=== PATIENT | female | born 1990 | race Caucasian/White ===

== ENCOUNTER → 2017-03-21 | Emergency (ER) | payer BC ==
[~2017-03-21] VITALS: Ht 172.7 cm; Wt 91.6 kg
[~2017-03-21] MED LIST: METH4TAB PO; PREN-53 PO
[2017-03-21 18:02] LABS: BILIRUBIN,URINE NEGATIVE (NEGATIVE); KETONES,URINE 2+ (NEGATIVE); LEUKOCYTE ESTERASE ,URINE NEGATIVE (NEGATIVE); NITRITE,URINE NEGATIVE (NEGATIVE); PH,URINE 6 (5-9); PROTEIN,URINE NEGATIVE (NEGATIVE); UROBILINOGEN,URINE NORMAL (NORMAL)
--- NOTE | 2017-03-21 18:04 | ED GU-Female ---
General Chief Complaint: -Female Stated Complaint: FELL/19 WEEKS OB Nursing Triage Note: PT AMBULATED TO ED. PT STATES SHE WAS GOING OUTSIDE HER HOUSE AND IT WAS RAINING AND SHE FELL DOWN HER 2 FR[address]AIRS. PT STATES SHE "FELL ONTO HER BACK BUT FEELS LIKE SHE ALSO FELL FORWARD". PT DID NOT HIT HEAD. Nursing Sepsis Screen: No Definite Risk Source: patient, spouse Exam Limitations: no limitations History of Present Illness Time seen by provider: 18:10 Initial Comments 25-year-old female patient presents to the emergency department complaints of falling down 2 stairs after slipping on the wet cemented. Landed on her buttocks, but her belly hit her thighs. Denies hitting her head, loss of consciousness, neck pain, back pain, vaginal discharge, vaginal bleeding. Patient is 19 weeks . Timing/Duration: just prior to arrival Activities at Onset: other (walking down the stairs) Prior Genitourinary Problems: recent trauma (see HPI) Allergies and Home Medications Allergies Coded Allergies: No Known Drug Allergies (Unverified , 01/23/16) Home Medications [id number]/Iron Fumarate/FA/Dss 1 Each Tablet, 1 EACH PO, (Reported) Constitutional: No dizziness, No weakness EENTM: no symptoms reported Respiratory: No cough, No short of breath Cardiovascular: No chest pain, No palpitations, No syncope Gastrointestinal: No abdominal pain, No diarrhea, No nausea, No vomiting Genitourinary: denies discharge, denies dysuria, denies frequency, denies flank pain, denies hematuria, denies incontinence, denies pain : Yes Expected Date of Delivery: Aug 13, 2017 Musculoskeletal: No back pain, No joint pain, No neck pain Skin: no symptoms reported Psychiatric/Neurological: No Symptoms Reported All Other Systemes Reviewed Negative Unless Noted: Yes (Negative excepted noted.) Past Xxpdzwd-Xqittz-Jsheil Hx Patient Social History Recent Foreign Travel: No Contact w/Someone Who Travel: No Recent Infectious Disease Expo: No Surgeries HX Surgeries: Yes (DENTAL) Respiratory Hx Respiratory Disorders: No Cardiovascular Hx Cardiac Disorders: No Neurological Hx Neurological Disorders: No Reproductive System : Yes Hx : 1 Hx Para: 0 Hx Total # of Abortions (Spona: 0 Hx Reproductive Disorders: No Female Reproductive Disorders: Denies Genitourinary Hx Genitourinary Disorders: No Gastrointestinal Hx Gastrointestinal Disorders: No Musculoskeletal Hx Musculoskeletal Disorders: No Endocrine Hx Endocrine Disorders: No HEENT HX ENT Disorders: No Cancer Hx Cancer: No Psychosocial Hx Psychiatric Problems: No Integumentary HX Skin/Integumentary Disorder: No Blood Transfusions Hx Blood Disorders: No Adverse Reaction to a Blood Tr: No Reviewed Nursing Assessment Reviewed/Agree w Nursing PMH: Yes Family Medical History Significant Family History: No Pertinent Family Hx Physical Exam Vital Signs Vital Sign - Last 12Hours Capillary Refill : Less Than 3 Seconds General Appearance: WD/WN, no apparent distress HEENT: PERRL/EOMI, pharynx normal Neck: non-tender, full range of motion, supple, normal inspection Cardiovascular: normal peripheral pulses, regular rate, rhythm, no edema, no murmur Respiratory: lungs clear, normal breath sounds, no respiratory distress Gastrointestinal: normal bowel sounds, non tender, soft, other (uteromegaly) Back: normal inspection, no vertebral tenderness Extremities: normal inspection, no pedal edema, normal capillary refill, pelvis stable Neurologic/Psychiatric: drier helper II-XII nml as tested, no motor/sensory deficits, alert, normal mood/affect, oriented x 3 Skin: normal color, warm/dry Progress/Results/Core Measures Results/Orders Lab Results Laboratory Tests Test 03/21/17 17:49 Range/Units Urine Color YELLOW Urine Clarity SLIGHTLY CLOUDY Urine pH 6 5-9 Urine Specific [place] 1.010 L 1.016-1.022 Urine Protein NEGATIVE NEGATIVE Urine Glucose (UA) NEGATIVE NEGATIVE Urine Ketones 2+ H NEGATIVE Urine Nitrite NEGATIVE NEGATIVE Urine Bilirubin NEGATIVE NEGATIVE Urine Urobilinogen NORMAL NORMAL MG/DL Urine Leukocyte Esterase NEGATIVE NEGATIVE Urine RBC (Auto) NEGATIVE NEGATIVE Urine RBC NONE /HPF Urine WBC 0-2 /HPF Urine Squamous Epithelial Cells 5-10 /HPF Urine Crystals NONE /LPF Urine Bacteria FEW H /HPF Urine Casts NONE /LPF Urine Mucus NEGATIVE /LPF Urine Culture Indicated NO My Orders Orders - BERNA PRINGLE Ua Culture If Indicated (03/21/17 17:53) [facility] [id number] (03/21/17 17:47) Vital Signs/I&O Vital Sign - Last 12Hours 03/21/17 03/21/17 17:42 17:42 Temp 97.8 97.8 Pulse 88 88 Resp 20 20 B/P (MAP) 141/88 (105) 141/88 Pulse Ox 98 98 O2 Delivery Room Air Room Air Blood Pressure Mean: 105 Diagnostic Imaging Diagonstic Imaging: Ultrasound Plain Films/CT/US/NM/MRI: pelvis Comments FINDINGS: The cervical length is estimated at 4.8 cm. The placenta appears posterior. The cervical os is not well demonstrated. It is difficult to definitively state the distance between the placenta and the cervical os. There is no identified retroplacental fluid collection. There is a single living intrauterine . heart rate is identified at 158 beats per minute. measurements were not made. There is no demonstrated free pelvic fluid. IMPRESSION: 1. No ultrasound evidence of placental abruption. 2. No demonstrated free pelvic fluid. 3. Single living intrauterine . Dictated on workstation # [id number] Reviewed: Reviewed by Me (radiology report reviewed by me) Departure Communication Progress Notes Laboratory and diagnostic findings discussed with the patient. Plan for discharge to home. All return precautions were discussed with the patient as described in the discharge instructions of this report. Patient voices understanding and agrees with the treatment plan. Impression Impression: Primary Impression: with 19 completed weeks gestation Additional Impressions: Fall from slipping on slippery surface Qualified Codes: W01.0XXA - Fall on same level from slipping, tripping and stumbling without subsequent striking against object, initial encounter Volume depletion Disposition: 01 HOME, SELF-CARE Condition: Improved Departure-Patient Inst. Decision time for Depature: 18:26 Referrals: KEERTHI FRANCISCO DO (PCP) Primary Care Physician Patient Instructions: Abdominal Trauma in (DC), Dehydration, Adult ( DC) Add. Discharge Instructions: All discharge instructions reviewed with patient and/or family. Voiced understanding. Tylenol [id number] as directed for pain. Drink plenty of fluids. Rest. No strenuous activity or intercourse until released by your stripping cutter and winder. Follow-up with your stripping cutter and winder this week for recheck. Call for appointment time. Return to the emergency department for abdominal pain, vaginal discharge, vaginal bleeding, or any other concerns. BERNA PRINGLE March 21, 2017 18:04
[2017-03-21 18:12] LABS: WBC,URINE 0-2 /HPF
--- NOTE | 2017-03-21 18:27 | Diagnostic Imaging Report ---
EXAM: Ultrasound OB limited. DATE: March 21, 2017. INDICATION: A 26-year-old female, fall. . COMPARISON: None. FINDINGS: The cervical length is estimated at 4.8 cm. The placenta appears posterior. The cervical os is not well demonstrated. It is difficult to definitively state the distance between the placenta and the cervical os. There is no identified retroplacental fluid collection. There is a single living intrauterine . heart rate is identified at 158 beats per minute. measurements were not made. There is no demonstrated free pelvic fluid. IMPRESSION: 1. No ultrasound evidence of placental abruption. 2. No demonstrated free pelvic fluid. 3. Single living intrauterine . Dictated by: Dictated on workstation # [id number]
[2017-03-21 18:56] VITALS: BP 141/88
== END | disposition home or self-care (01) ==
LOC: EDUNIT# 17:35 → ER 17:38
DX: S39.92XA Unspecified injury of lower back, initial encounter (principal); O99.282 Endocrine, nutritional and metabolic diseases complicating pregnancy, second trimester; E86.9 Volume depletion, unspecified; Z3A.19 19 weeks gestation of pregnancy; W01.0XXA Fall on same level from slipping, tripping and stumbling without subsequent striking against object, initial encounter; Y92.009 Unspecified place in unspecified non-institutional (private) residence as the place of occurrence of the external cause; Y99.8 Other external cause status
CPT/HCPCS: 76815; 81000; 99283

== ENCOUNTER → 2017-04-04 | Outpatient (CLI) | payer BC ==
--- NOTE | 2017-04-04 15:33 | Diagnostic Imaging Report ---
INDICATION: survey. TECHNIQUE: Multiple real-time grayscale images were obtained over the gravid uterus. COMPARISON: 03/21/2017. FINDINGS: The heart rate is 146 beats minute. The placenta is posterior. No placenta previa. The cervix is 4.8 cm in length and is closed. The lateral ventricles, the stomach, the spine, the bladder, two umbilical arteries are demonstrated. No hydronephrosis or cystic mass at the level of the kidneys. The four-chamber view is not well seen due to position. Also the cord insertion is not well evaluated. Current gestational age based on provided SYDNIE of 08/13/2017, would be 21 weeks and 2 days. Biometrical measurements are as follows: Biparietal 5.2 cm, age 21 weeks 6 days. Head circumference 19.2 cm, age 21 weeks 4 days. Abdominal circumference 16.2 cm, age 21 weeks 3 days. Femur length 3.7 cm, age 21 weeks 5 days. Sonographic estimate age: 21 weeks 5 days. Sonographic estimated date of delivery: 08/10/17. Estimated Weight: 429 gm (+/- 63 gm). LMP percentile: 56%. heart rate: 146 beats per minute. number: 1 of 1. IMPRESSION: Reevaluation for cord insertion and four-chamber view within two weeks is recommended. Dictated by: Dictated on workstation # [id number]
== END ==
LOC: RAD 11:42
PROVIDERS: ATTEND Obstetrics & Gynecology
DX: Z34.92 Encounter for supervision of normal pregnancy, unspecified, second trimester (principal)
CPT/HCPCS: 76805

== ENCOUNTER → 2017-06-01 | Outpatient (CLI) | payer BC ==
--- NOTE | 2017-06-01 11:55 | Diagnostic Imaging Report ---
INDICATION: Followup cord insertion and four-chamber view. TECHNIQUE: Multiple real-time grayscale images were obtained over the gravid uterus. COMPARISON: 04/04/17 FINDINGS: The placenta is posterior. No placenta previa. The JOCELYN is 14 cm. The cord insertion appear unremarkable. The four-chamber view is still not well seen due to position. The heart rate is 121 beats per minutes. IMPRESSION: The cord insertion appear unremarkable. The four-chamber view is still not well seen due to position. Dictated by: Dictated on workstation # [id number]
== END ==
LOC: RAD 09:53
PROVIDERS: ATTEND Obstetrics & Gynecology
DX: Z36 Encounter for antenatal screening of mother (principal); Z3A.00 Weeks of gestation of pregnancy not specified
CPT/HCPCS: 76816

== ENCOUNTER 2017-08-10 20:42 | Outpatient (CLI) | payer BC ==
[~2017-08-10] VITALS: Ht 172.7 cm; Wt 103.9 kg
[2017-08-10 20:57] VITALS: BP 136/82
[2017-08-10 21:05] LABS: BILIRUBIN,URINE NEGATIVE (NEGATIVE); KETONES,URINE NEGATIVE (NEGATIVE); LEUKOCYTE ESTERASE ,URINE 3+ (NEGATIVE); NITRITE,URINE NEGATIVE (NEGATIVE); PH,URINE 7 (5-9); PROTEIN,URINE NEGATIVE (NEGATIVE); UROBILINOGEN,URINE NORMAL (NORMAL)
[2017-08-10] MEDS ORDERED: CEPH-507 PO (21:52)
--- NOTE | 2017-08-13 12:18 | Physician Query-Final Dx ---
BINA ODEN 08/13/17 1218: Clinic Account Progress/Dx Physician Query: Please give diagnosis Date of Service Aug 10, 2017 at 20:42 ANAMARIA OLIVA DO 08/14/17 1018: Clinic Account Progress/Dx DIAGNOSIS: Diagnosis 37 week IUP Uterine contractions UTI BINA ODEN Aug 13, 2017 12:18 ANAMARIA OLIVA DO Aug 14, 2017 10:18
== END 2017-08-10 21:58 | disposition home or self-care (01) ==
LOC: LDRP 20:42 → WSo 20:42
PROVIDERS: ATTEND Obstetrics & Gynecology
DX: O23.93 Unspecified genitourinary tract infection in pregnancy, third trimester (principal); Z3A.37 37 weeks gestation of pregnancy
CPT/HCPCS: 81000; 87088; 99214

== ENCOUNTER 2017-08-13 20:09 | Inpatient (IN) | payer BC ==
[~2017-08-13] VITALS: Ht 172.7 cm; Wt 104.3 kg
[~2017-08-13 20:09] MED LIST changes: +CEPH-507 PO
[2017-08-13 20:12] VITALS: BP 153/76
[2017-08-13 20:17] VITALS: BP 143/71
[2017-08-13] MEDS ORDERED: CATHETER FLUSH 10 ML SYR IV PRN (21:00)
[2017-08-13] MEDS ORDERED: MINERAL OIL CONCENTRATE 99.9% 15 ML UDC TOP PRN (21:00)
[2017-08-13] MEDS ORDERED: NS IV 1000 ML 1,000 ML IV ONE (21:00)
[2017-08-13] MEDS ORDERED: MISOPROSTOL 100 MCG (CYTOTEC) TAB PO ONE (21:00)
[2017-08-13] MEDS: D5 LR IV SOLUTION 1,000 ML IV SCH (21:20)
[2017-08-13 21:40] LABS: BASOPHILS # (AUTO) 0.1 10^3/uL (0.0-0.1); BASOPHILS % (AUTO) 0 % (0-10); EOSINOPHILS # (AUTO) 0.2 10^3/uL (0.0-0.3); EOSINOPHILS % (AUTO) 1 % (0-10); LYMPHOCYTES # (AUTO) 2.8 X 10^3 (1.0-4.0); LYMPHOCYTES % (AUTO) 17 % (12-44); MEAN CORPUSCULAR HEMOGLOBIN 29 PG (25-34); MEAN CORPUSCULAR HGB CONC 34 G/DL (32-36); MEAN CORPUSCULAR VOLUME 86 FL (80-99); MEAN PLATELET VOLUME 9.2 FL (7.4-10.4); MONOCYTES # (AUTO) 1.4 X 10^3 (0.0-1.0); MONOCYTES % (AUTO) 9 % (0-12); NEUTROPHILS # (AUTO) 11.7 X 10^3 (1.8-7.8); NEUTROPHILS % (AUTO) 73 % (42-75); PLATELET COUNT 269 10^3/uL (130-400); RED BLOOD COUNT 3.82 10^6/uL (4.35-5.85); RED CELL DISTRIBUTION WIDTH 14.3 % (10.0-14.5); WHITE BLOOD COUNT 16.1 10^3/uL (4.3-11.0)
[2017-08-13 21:52] LABS: BILIRUBIN,URINE NEGATIVE (NEGATIVE); KETONES,URINE NEGATIVE (NEGATIVE); LEUKOCYTE ESTERASE ,URINE 2+ (NEGATIVE); NITRITE,URINE NEGATIVE (NEGATIVE); PH,URINE 6.5 (5-9); PROTEIN,URINE NEGATIVE (NEGATIVE); SQUAMOUS EPITHELIAL CELL,UR >50 /HPF; UROBILINOGEN,URINE NORMAL (NORMAL)
[2017-08-13 22:03] LABS: BAND NEUTROPHILS 9 %; BASOPHILS % (MANUAL) 0 %; EOSINOPHILS % (MANUAL) 2 %; LYMPHOCYTES % (MANUAL) 20 %; METAMYELOCYTES % 2 %; NEUTROPHILS % (MANUAL) 62 %
[2017-08-13 22:45] VITALS: BP 131/81
[2017-08-13 23:33] VITALS: BP 137/73
[2017-08-14] VITALS (65 sets, daily range): BP systolic 103–137; BP diastolic 56–84
[2017-08-14] MEDS: MISOPROSTOL 100 MCG (CYTOTEC) TAB PO SCH ×4 (01:27→13:30)
[2017-08-14] MEDS: D5 LR IV SOLUTION 1,000 ML IV SCH ×3 (04:18→20:20)
[2017-08-14] MEDS ORDERED: INFLUENZA TRIvalent 2017-2018 0.5 ML/45 MCG SYR IM ONE (07:15)
[2017-08-14] MEDS ORDERED: OXYTOCIN/NORMAL SALINE 500 ML IV SCH (11:55)
--- NOTE | 2017-08-14 11:56 | Progress Note-Standard ---
Standard Progress Note Progress Notes/Assess & Plan Date Seen by Provider: Aug 14, 2017 Time Seen by Provider: 11:30 Progress/Assessment & Plan Has received 4 doses of cytotec SVE 1+ 50/ -2 AROM clear [place] q 2-6 FWB reassuring Will monitor for change and augment as needed. Epidural prn Laboratory Tests Test 08/13/17 20:30 08/13/17 21:00 Range/Units Urine Color YELLOW Urine Clarity SLIGHTLY CLOUDY Urine pH 6.5 5-9 Urine Specific [place] 1.010 L 1.016-1.022 Urine Protein NEGATIVE NEGATIVE Urine Glucose (UA) NEGATIVE NEGATIVE Urine Ketones NEGATIVE NEGATIVE Urine Nitrite NEGATIVE NEGATIVE Urine Bilirubin NEGATIVE NEGATIVE Urine Urobilinogen NORMAL NORMAL MG/DL Urine Leukocyte Esterase 2+ H NEGATIVE Urine RBC (Auto) 2+ H NEGATIVE Urine RBC 5-10 H /HPF Urine WBC 10-25 H /HPF Urine Squamous Epithelial Cells >50 H /HPF Urine Crystals NONE /LPF Urine Bacteria FEW H /HPF Urine Casts NONE /LPF Urine Mucus NEGATIVE /LPF Urine Culture Indicated YES White Blood Count 16.1 H 4.3-11.0 10^3/uL Red Blood Count 3.82 L 4.35-5.85 10^6/uL Hemoglobin 11.2 L 11.5-16.0 G/DL Hematocrit 33 L 35-52 % Mean Corpuscular Volume 86 80-99 FL Mean Corpuscular Hemoglobin 29 25-34 PG Mean Corpuscular Hemoglobin Concent 34 32-36 G/DL Red Cell Distribution Width 14.3 10.0-14.5 % Platelet Count 269 130-400 10^3/uL Mean Platelet Volume 9.2 7.4-10.4 FL Neutrophils (%) (Auto) 73 42-75 % Lymphocytes (%) (Auto) 17 12-44 % Monocytes (%) (Auto) 9 0-12 % Eosinophils (%) (Auto) 1 0-10 % Basophils (%) (Auto) 0 0-10 % Neutrophils # (Auto) 11.7 H 1.8-7.8 X 10^3 Lymphocytes # (Auto) 2.8 1.0-4.0 X 10^3 Monocytes # (Auto) 1.4 H 0.0-1.0 X 10^3 Eosinophils # (Auto) 0.2 0.0-0.3 10^3/uL Basophils # (Auto) 0.1 0.0-0.1 10^3/uL Neutrophils % (Manual) 62 % Lymphocytes % (Manual) 20 % Monocytes % (Manual) 5 % Eosinophils % (Manual) 2 % Basophils % (Manual) 0 % Metamyelocytes % 2 % Band Neutrophils 9 % Blood Morphology Comment NORMAL Vital Sign - Last 12Hours 08/14/17 08/14/17 08/14/17 08/14/17 00:30 01:35 05:30 08:35 Temp 97.0 98.1 99.8 Pulse 79 81 79 87 Resp 18 18 18 18 B/P (MAP) 114/58 117/58 137/76 136/83 08/14/17 08/14/17 08/14/17 09:00 09:35 10:00 Pulse 84 Resp 18 B/P (MAP) 134/78 KEERTHI FRANCISCO DO Aug 14, 2017 11:56
[2017-08-14] MEDS ORDERED: fentaNYL INJECTION 100 MCG/2 ML AMP IVP PRN (12:00)
[2017-08-14] MEDS ORDERED: PROMETHAZINE INJ 25 MG/ML (PHENERGAN) AMP IVP PRN (12:00)
[2017-08-14] MEDS ORDERED: SUFENTA 0.6MCG/ML BUPIVA 0.125 100 ML ONE (13:29)
[2017-08-14] MEDS ORDERED: BUPIVACAINE 0.25% 30 ML (SENSORCAINE) VIAL ONE (13:57)
[2017-08-14] MEDS ORDERED: LIDOCAINE PF 2% 5 ML (XYLOCAINE) VIAL ONE (13:57)
[2017-08-14] MEDS ORDERED: fentaNYL INJECTION 100 MCG/2 ML AMP ONE (13:58)
[2017-08-14] MEDS: EPIDURAL (SUFENTA 0.6MCG/ML BUPIVA 0.125%) 100 ML BAG EPI PRN ×2 (14:31→22:57)
[2017-08-14] MEDS ORDERED: LACTATED RINGERS 1,000 ML IV SCH (14:58)
[2017-08-14] MEDS ORDERED: diphenhydrAMINE 50 MG/ML INJ (BENADRYL) IV PRN (15:00)
[2017-08-14] MEDS ORDERED: ONDANSETRON 4 MG/2 ML (SDV) Z0FRAN IV PRN (15:00)
[2017-08-14] MEDS ORDERED: NALOXONE 0.4 MG/ML 1 ML (NARCAN) VIAL IV PRN (15:00)
[2017-08-15] VITALS (36 sets, daily range): BP systolic 110–177; BP diastolic 55–97
--- NOTE | 2017-08-15 03:53 | OB Labor & Delivery Record ---
Vag Delivery Note Vag Delivery Note Date of Delivery: 08/15/17 Preoperative Diagnosis: Eva Stern is a 26 /Para 1/0 , Gestational Age 40 1/7 weeks for induction due to post dates Postoperative Diagnosis: Same Surgeon: KEERTHI FRANCISCO Anesthesia: epidural, local Delivery Type: vaginal Findings: Viable male , apgars 7/9, weight 832oz Lacerations: bilateral vaginal sulcus, Intact placenta with 3 vessel cord. No nuchal cord x 2 delivered through, body cord or shoulder dystocia Estimated Blood Loss: 700 ml Complications: None Condition: Stable Description of Procedure: The patient is a 26 /Para 1/0 ,Gestational Age 40 1/7 weeks for induction due to post dates. She was admitted and informed consent was obtained. Her labor course was remarkable for misoprostol cervical ripening x 4 doses, then AROM and augmentation with pitocin. She progressed to complete dilatation and began to push. She was then set up for delivery. The infant's head was delivered atraumatically in the JOAO position. The shoulders and remainder of the infant's body were then delivered without difficulty. Upon delivery, the head was held below the level of the perineum and the mouth and nares were bulb suctioned. The cord was doubly clamped and cut and the was handed off to the pediatric staff. An intact placenta with 3-vessel cord delivered via Trae and there was found to vaginal bleeding from the lacerations but minimal uterine bleeding.~ Vigorous fundal massage was performed and the fundus was found to be firm. IV oxytocin was given. Examination of the vagina and perineum revealed bilateral vaginal sulci lacerations repaired in the usual fashion with 3-0 vicryl suture using topical 2% lidocaine. Following the repair, sponge, instrument and needle counts were correct. Mom and baby were both in stable condition in the labor suite. Vitals - Labs Vital Signs - I&O Vital Signs Date Time Temp Pulse Resp B/P (MAP) Pulse Ox O2 Delivery O2 Flow Rate FiO2 08/14/17 19:00 86 18 130/75 08/14/17 18:45 82 18 125/73 08/14/17 18:30 83 18 124/72 08/14/17 18:15 99.8 77 18 125/65 08/14/17 18:00 76 18 118/56 08/14/17 17:45 76 18 113/58 08/14/17 17:30 73 18 103/57 08/14/17 17:15 73 18 108/56 08/14/17 17:00 82 18 121/72 99 08/14/17 16:45 79 18 129/72 99 08/14/17 16:30 87 18 128/67 99 08/14/17 16:15 99.0 96 18 99 08/14/17 16:00 87 18 132/74 99 08/14/17 15:45 90 18 129/64 98 08/14/17 15:38 88 18 116/72 98 08/14/17 15:33 86 18 124/70 98 08/14/17 15:30 08/14/17 15:28 83 18 122/62 98 08/14/17 15:23 85 18 124/65 98 08/14/17 15:15 74 18 119/60 99 08/14/17 15:10 83 18 120/68 98 08/14/17 15:05 87 18 120/69 99 08/14/17 15:00 90 18 122/61 99 08/14/17 14:56 84 18 128/66 99 08/14/17 14:53 86 18 124/66 99 08/14/17 14:50 71 18 115/60 97 08/14/17 14:48 98.7 89 18 121/64 98 08/14/17 14:45 81 18 119/62 97 08/14/17 14:43 82 18 124/64 97 08/14/17 14:38 81 18 125/59 97 08/14/17 14:33 83 18 127/63 97 08/14/17 14:30 08/14/17 14:28 86 18 132/70 98 08/14/17 14:23 83 18 131/68 99 08/14/17 14:18 81 18 133/72 100 08/14/17 14:15 86 100 08/14/17 14:10 83 18 131/84 100 08/14/17 14:00 08/14/17 13:40 80 18 125/67 08/14/17 13:00 08/14/17 12:40 98.2 74 18 128/69 08/14/17 12:00 08/14/17 11:40 81 18 123/79 08/14/17 11:00 08/14/17 10:40 85 18 128/76 08/14/17 10:00 08/14/17 09:35 84 18 134/78 08/14/17 09:00 08/14/17 08:35 99.8 87 18 136/83 08/14/17 05:30 98.1 79 18 137/76 Labs Microbiology 08/13/17 Urine Culture - Preliminary, Resulted NO GROWTH KEERTHI FRANCISCO DO Aug 15, 2017 03:53
[2017-08-15] MEDS ORDERED: OXYTOCIN/NORMAL SALINE 500 ML IV SCH (03:54)
[2017-08-15] MEDS ORDERED: MEASLES,MUMPS,RUBELLA 1 EA INJ SQ ONE (04:00)
[2017-08-15] MEDS ORDERED: TETANUS,DIPTH,PERTUSS P/F (BOOSTRIX) 0.5 ML VIAL IM ONE (04:00)
[2017-08-15] MEDS ORDERED: DIBUCAINE (NUPERCAINAL) 1% OINT 30 GM TOP PRN (04:00)
[2017-08-15] MEDS ORDERED: HYDROcodone/APAP 5 MG/325 MG (LORTAB) TAB PO PRN (04:00)
[2017-08-15] MEDS ORDERED: BENZOCAINE/MENTHOL (DERMOPLAST) 56 ML CAN TP PRN (04:00)
[2017-08-15] MEDS: IBUPROFEN 600 MG (MOTRIN) TAB PO SCH ×3 (06:02→18:48)
[2017-08-15] MEDS: WITCH HAZEL(TUCKS) 40 EA JAR TOP PRN (06:03)
[2017-08-15] MEDS: CATHETER FLUSH 10 ML SYR IV SCH (06:57)
[2017-08-15] MEDS: FERROUS SULF 325 MG (IRON) TAB PO SCH (08:40)
[2017-08-15] MEDS: DOCUSATE SODIUM 100 MG (COLACE) CAP PO SCH ×2 (08:40→21:20)
[2017-08-15] MEDS: PRENATAL VITAMIN 1 EA TAB PO SCH (08:40)
--- NOTE | 2017-08-15 09:35 | Anesthesia-Regional Post-Op ---
Regional Patient Condition Mental Status: Alert, Oriented x3 Circulation: Same as Pre-Op Headache: Absent Sensation: Full Recovery Motor Block: Absent Post Op Complications Complications None Follow Up Care/Instructions Patient Instructions None needed. Anesthesia/Patient Condition Patient is doing well, no complaints, stable vital signs, no apparent adverse anesthesia problems. No complications reported per nursing. MALACHI COURTNEY CRNA Aug 15, 2017 09:35
[2017-08-16] MEDS: IBUPROFEN 600 MG (MOTRIN) TAB PO SCH ×4 (06:12→23:46)
[2017-08-16 06:19] LABS: BASOPHILS % (AUTO) 0 % (0-10); EOSINOPHILS # (AUTO) 0.3 10^3/uL (0.0-0.3); EOSINOPHILS % (AUTO) 2 % (0-10); LYMPHOCYTES # (AUTO) 2.7 X 10^3 (1.0-4.0); LYMPHOCYTES % (AUTO) 16 % (12-44); MEAN CORPUSCULAR HEMOGLOBIN 30 PG (25-34); MEAN CORPUSCULAR HGB CONC 34 G/DL (32-36); MEAN CORPUSCULAR VOLUME 89 FL (80-99); MEAN PLATELET VOLUME 9.4 FL (7.4-10.4); MONOCYTES # (AUTO) 1.2 X 10^3 (0.0-1.0); MONOCYTES % (AUTO) 7 % (0-12); NEUTROPHILS # (AUTO) 12.6 X 10^3 (1.8-7.8); NEUTROPHILS % (AUTO) 75 % (42-75); PLATELET COUNT 225 10^3/uL (130-400); RED BLOOD COUNT 2.92 10^6/uL (4.35-5.85); RED CELL DISTRIBUTION WIDTH 14.4 % (10.0-14.5); WHITE BLOOD COUNT 16.8 10^3/uL (4.3-11.0)
[2017-08-16] MEDS: PRENATAL VITAMIN 1 EA TAB PO SCH (10:11)
[2017-08-16] MEDS: DOCUSATE SODIUM 100 MG (COLACE) CAP PO SCH ×2 (10:12→21:20)
[2017-08-16] MEDS: FERROUS SULF 325 MG (IRON) TAB PO SCH (10:12)
[2017-08-16 11:35] VITALS: BP 118/74
[2017-08-16] MEDS: WITCH HAZEL(TUCKS) 40 EA JAR TOP PRN (11:43)
--- NOTE | 2017-08-16 12:27 | Postpartum Progress Note ---
Note Note Day # 1 s/p Subjective: Patient is without complaints. Ambulating, voiding. Tolerating a regular diet without nausea or vomiting. Normal lochia. Pain is well controlled with oral pain medications. breast feeding Objective: Vital Sign - Last 12Hours 08/16/17 11:35 Temp 99.0 Pulse 95 Resp 18 B/P (MAP) 118/74 Pulse Ox 97 O2 Delivery Room Air Laboratory Tests Test 08/16/17 05:25 Range/Units White Blood Count 16.8 H 4.3-11.0 10^3/uL Red Blood Count 2.92 L 4.35-5.85 10^6/uL Hemoglobin 8.7 #L 11.5-16.0 G/DL Hematocrit 26 L 35-52 % Mean Corpuscular Volume 89 80-99 FL Mean Corpuscular Hemoglobin 30 25-34 PG Mean Corpuscular Hemoglobin Concent 34 32-36 G/DL Red Cell Distribution Width 14.4 10.0-14.5 % Platelet Count 225 130-400 10^3/uL Mean Platelet Volume 9.4 7.4-10.4 FL Neutrophils (%) (Auto) 75 42-75 % Lymphocytes (%) (Auto) 16 12-44 % Monocytes (%) (Auto) 7 0-12 % Eosinophils (%) (Auto) 2 0-10 % Basophils (%) (Auto) 0 0-10 % Neutrophils # (Auto) 12.6 H 1.8-7.8 X 10^3 Lymphocytes # (Auto) 2.7 1.0-4.0 X 10^3 Monocytes # (Auto) 1.2 H 0.0-1.0 X 10^3 Eosinophils # (Auto) 0.3 0.0-0.3 10^3/uL Basophils # (Auto) 0.0 0.0-0.1 10^3/uL Physical Exam: General - Alert and oriented, no apparent distress Abdomen - Soft, appropriately tender to palpation, non-distended, fundus firm at umbilicus Extremities - no edema, negative Nadia's bilaterally Assessment: 1. post- day #1, status post spontaneous vaginal delivery. Recovering well, hemodynamically stable Acute blood loss anemia Plan: Routine care. Encourage breast feeding. Encourage ambulation. Ferrous sulfate supplementation. Plan for discharge tomorrow Vitals - Labs Vital Signs - I&O Vital Signs Date Time Temp Pulse Resp B/P (MAP) Pulse Ox O2 Delivery O2 Flow Rate FiO2 08/16/17 11:35 99.0 95 18 118/74 97 Room Air 08/15/17 21:15 97.1 89 16 121/78 99 Room Air 08/15/17 18:48 98.9 87 16 119/72 96 Room Air Labs Laboratory Tests 08/16/17 05:25: White Blood Count 16.8H, Red Blood Count 2.92L, Hemoglobin 8.7#L, Hematocrit 26L , Mean Corpuscular Volume 89, Mean Corpuscular Hemoglobin 30, Mean Corpuscular Hemoglobin Concent 34, Red Cell Distribution Width 14.4, Platelet Count 225, Mean Platelet Volume 9.4, Neutrophils (%) (Auto) 75, Lymphocytes (%) (Auto) 16, Monocytes (%) (Auto) 7, Eosinophils (%) (Auto) 2, Basophils (%) (Auto) 0, Neutrophils # (Auto) 12.6H, Lymphocytes # (Auto) 2.7, Monocytes # (Auto) 1.2H, Eosinophils # (Auto) 0.3, Basophils # (Auto) 0.0 Microbiology 08/13/17 Urine Culture - Final, Complete NO GROWTH KEERTHI FRANCISCO DO Aug 16, 2017 12:27 pm
[2017-08-16 17:25] VITALS: BP_SYST 133; BP_DIAS 75; BP_DIAS 84
[2017-08-16 23:45] VITALS: BP 125/80
[2017-08-17] MEDS: D5 LR IV SOLUTION 1,000 ML IV SCH ×2 (02:01→04:16)
[2017-08-17] MEDS: CATHETER FLUSH 10 ML SYR IV SCH ×2 (02:01→04:17)
[2017-08-17 05:40] VITALS: BP 116/70
[2017-08-17] MEDS: IBUPROFEN 600 MG (MOTRIN) TAB PO SCH ×3 (05:48→18:24)
[2017-08-17] MEDS: FERROUS SULF 325 MG (IRON) TAB PO SCH (10:36)
[2017-08-17] MEDS: DOCUSATE SODIUM 100 MG (COLACE) CAP PO SCH (10:36)
[2017-08-17 12:09] VITALS: BP 117/67
--- NOTE | 2017-08-17 16:36 | Postpartum Progress Note ---
Note Note Day # 2 s/p Subjective: Patient is without complaints. Ambulating, voiding. Tolerating a regular diet without nausea or vomiting. Normal lochia. Pain is well controlled with oral pain medications. Objective: Vital Signs 08/17/17 12:09 Temp 98.8 Pulse 96 Resp 18 B/P (MAP) 117/67 Pulse Ox 98 O2 Delivery Room Air Physical Exam: General - Alert and oriented, no apparent distress Abdomen - Soft, appropriately tender to palpation, non-distended, fundus firm at umbilicus Extremities - no edema, negative Nadia's bilaterally Assessment: 1. post- day # 2, status post spontaneous vaginal delivery. Recovering well, hemodynamically stable Plan: Routine care. Encourage breast feeding. Encourage ambulation. Ferrous sulfate supplementation. Plan for discharge to parent room Vitals - Labs Vital Signs - I&O Vital Signs Date Time Temp Pulse Resp B/P (MAP) Pulse Ox O2 Delivery O2 Flow Rate FiO2 08/17/17 12:09 98.8 96 18 117/67 98 Room Air 08/17/17 05:40 97.0 80 18 116/70 Room Air 08/16/17 23:45 98.1 83 18 125/80 97 Room Air 08/16/17 17:25 98.3 89 16 133/75 Room Air Labs Microbiology 08/13/17 Urine Culture - Final, Complete NO GROWTH KEERTHI FRANCISCO DO Aug 17, 2017 16:36
[2017-08-17] MEDS ORDERED: DOCU100C37 PO (16:37)
[2017-08-17] MEDS ORDERED: FERR-74 PO (16:37)
[2017-08-17] MEDS ORDERED: IBUP-1773 PO (16:37)
--- NOTE | 2017-08-17 16:40 | Discharge Inst-Women's Service ---
Discharge Inst-Women's Serv Depart Medication/Instructions New, Converted or Re-Newed RX: RX on Chart Final Diagnosis post date induction acute blood loss anemia vaginal delivery epidural Consults/Follow Up Additional Follow Up: Yes (1-2 weeks for vaginal check/laceration; 6 week post exam) Activity Activity: Activity as Tolerated Driving Instructions: You May Drive NO SMOKING: NO SMOKING Nothing Inside Vagina: No Douching, No [place], No Tampons Diet Discharge Diet: No Restrictions Symptoms to Report to : Bleeding Excessive, Pain Increased, Fever Over 101 Degrees F, Vaginal Bleeding Increase, Cramps in Feet or Legs, Vaginal Discharge Foul For Any Problems or Questions: Contact Your Physician Skin/Wound Care Bathing Instructions: KEERTHI Gibson DO Aug 17, 2017 16:40
[2017-08-17] MEDS ORDERED: TETANUS,DIPTH,PERTUSS P/F (BOOSTRIX) 0.5 ML VIAL IM ONE (16:43)
[2017-08-17] MEDS ORDERED: INFLUENZA TRIvalent 2017-2018 0.5 ML/45 MCG SYR IM ONE (16:43)
[2017-08-17 18:15] VITALS: BP 120/72
== END 2017-08-17 18:36 | disposition home or self-care (01) | DRG 775 ==
LOC: LDRP 20:09
PROVIDERS: ADMIT Obstetrics & Gynecology; ATTEND Obstetrics & Gynecology
PROC: 10E0XZZ Delivery of Products of Conception, External Approach (ICD-10-PCS; principal; 2017-08-15)
PROC: 0UQGXZZ Repair Vagina, External Approach (ICD-10-PCS; 2017-08-15)
DX: O48.0 Post-term pregnancy (principal); O71.4 Obstetric high vaginal laceration alone; O99.03 Anemia complicating the puerperium; D62 Acute posthemorrhagic anemia; O69.81X0 Labor and delivery complicated by cord around neck, without compression, not applicable or unspecified; O99.613 Diseases of the digestive system complicating pregnancy, third trimester; K21.9 Gastro-esophageal reflux disease without esophagitis; Z3A.40 40 weeks gestation of pregnancy; Z37.0 Single live birth; Z23 Encounter for immunization
CPT/HCPCS: 36415; 81000; 85007; 85025; 85027; 86850; 86900; 86901; 87088; 90715